=== PATIENT | female | born 1950 | race Caucasian/White ===

== ENCOUNTER 2024-09-04 08:47 | Outpatient (CLI) | payer MEDICARE, BC | END 2024-09-04 08:48 | disposition home or self-care (01) | LOC: SCSMRI 08:47 | PROVIDERS: ATTEND Orthopaedic Surgery Hand Surgery | DX: S63.408A Traumatic rupture of unspecified ligament of other finger at metacarpophalangeal and interphalangeal joint, initial encounter (principal); M47.22 Other spondylosis with radiculopathy, cervical region; M48.02 Spinal stenosis, cervical region; M47.813 Spondylosis without myelopathy or radiculopathy, cervicothoracic region; M48.03 Spinal stenosis, cervicothoracic region | CPT/HCPCS: 72141 ==